=== PATIENT | female | born 1985 | race Caucasian/White ===

== ENCOUNTER 2016-12-26 15:55 | Inpatient (IN) | payer OTHER ==
[2016-12-26 16:34] LABS: Hematocrit 39 % (35-47); Hemoglobin 13.1 g/dl (12.0-16.0); Mean Corpuscular HGB Conc 34 g/dl (31-36); Mean Corpuscular Hemoglobin 33 pg (27-31); Mean Corpuscular Volume 96 fL (80-97); Mean Platelet Volume 8 um3 (7.4-10.4); Red Blood Count 4.01 10^6/ul (4.0-5.4); Red Cell Distribution Width 14 % (10.5-15); White Blood Count 7.1 10^3/ul (3.5-10.8)
[2016-12-26] MEDS ORDERED: fentaNYL* 50 MCG/ML 2 ML VIAL (100 MCG VIAL) ONE (17:02)
[2016-12-26] MEDS ORDERED: diPHENhydraMINE IV* 50 MG/ML 1 ml VIAL (BENADRYL) IV PRN (17:22)
[2016-12-26] MEDS ORDERED: Nalbuphine* 20 MG/ML 1 ML VIAL IV PRN ×2 (17:22)
[2016-12-26] MEDS ORDERED: Naloxone* 2 MG in NS 0.9% 250 ML* 250 ML IV PRN (17:22)
[2016-12-26] MEDS ORDERED: Naloxone* 0.4 MG/ML 1 ML VIAL IV PRN (17:22)
[2016-12-26] MEDS ORDERED: Ondansetron INJ* 2 MG/ML VIAL IV PRN (17:22)
[2016-12-26] MEDS ORDERED: DiMENhydriNATE IV* 50 MG/ML VIAL IV PUSH PRN (17:22)
[2016-12-26] MEDS ORDERED: Sodium Citrate/Citric Acid* 15 ML UDC PO PRN (17:26)
[2016-12-26] MEDS ORDERED: Famotidine TAB* 20 MG PO PRN (17:26)
[2016-12-26] MEDS ORDERED: Phenylephrine IV* 40 MCG/ML 10 ML SYRINGE IV PUSH PRN (17:26)
[2016-12-26] MEDS ORDERED: EPHEDrine (Pressors)* 50 MG/ML VIAL IV PUSH PRN (17:26)
[2016-12-26] MEDS ORDERED: Witch Hazel PAD* JAR TOPICAL PRN (20:00)
[2016-12-26] MEDS ORDERED: Oxytocin in LR* 20 UNITS/1,000 ML BAG IVPB SCH (20:00)
[2016-12-26] MEDS ORDERED: Acetaminophen TAB* 325 MG PO PRN (20:00)
[2016-12-26] MEDS ORDERED: Dibucaine 1% 28.35 GM TUBE ONE (20:01)
[2016-12-26] MEDS ORDERED: Lidocaine 1% MPF* 2 ML VIAL ONE (20:01)
[2016-12-26] MEDS ORDERED: OXYTOCIN* 10 UNITS/ML 1 ML VIAL ONE (20:02)
[2016-12-26] MEDS ORDERED: Misoprostol TAB* 200 MCG ONE (20:03)
[2016-12-27 07:12] LABS: Hematocrit 34 % (35-47); Hemoglobin 11.4 g/dl (12.0-16.0); Mean Corpuscular HGB Conc 34 g/dl (31-36); Mean Corpuscular Hemoglobin 32 pg (27-31); Mean Corpuscular Volume 96 fL (80-97); Mean Platelet Volume 8 um3 (7.4-10.4); Red Blood Count 3.54 10^6/ul (4.0-5.4); Red Cell Distribution Width 14 % (10.5-15); White Blood Count 11.1 10^3/ul (3.5-10.8)
[2016-12-27] MEDS: Docusate CAP* 100 MG PO SCH ×4 (08:56→20:24)
[2016-12-27] MEDS ORDERED: Ferrous Gluconate TAB* 324 MG TAB PO SCH (09:00)
[2016-12-27] MEDS: Ibuprofen TAB* 600 MG PO PRN ×2 (09:06→20:39)
--- NOTE | 2016-12-27 11:17 | PTEDU ---
Patient Name: STEVIE CARDENAS STEVIE CARDENAS selected video: BBOB: Bonding Through Massage to view on 12/27/2016 at 11:16:19 AM from [id number]
[2016-12-27] MEDS: Dibucaine 1% 28.35 GM TUBE PR PRN (15:54)
[2016-12-28] MEDS: Ibuprofen TAB* 600 MG PO PRN (07:33)
[2016-12-28] MEDS: Docusate CAP* 100 MG PO SCH (08:56)
[2016-12-28 10:06] VITALS: BP 94/53
[2016-12-28] MEDS: Dibucaine 1% 28.35 GM TUBE PR PRN (13:11)
== END 2016-12-28 13:11 | disposition home or self-care (01) | DRG 560 ==
LOC: MCHOBOUT 15:55 → MCHOB 16:18
PROVIDERS: ADMIT Nurse Practitioner; ATTEND Nurse Practitioner
PROC: 10E0XZZ Delivery of Products of Conception, External Approach (ICD-10-PCS; principal; 2016-12-26)
PROC: 0KQM0ZZ Repair Perineum Muscle, Open Approach (ICD-10-PCS; 2016-12-26)
PROC: 4A1HX4Z Monitoring of Products of Conception, Cardiac Electrical Activity, External Approach (ICD-10-PCS; 2016-12-26)
PROC: 00HU33Z Insertion of Infusion Device into Spinal Canal, Percutaneous Approach (ICD-10-PCS; 2016-12-26)
PROC: 10907ZC Drainage of Amniotic Fluid, Therapeutic from Products of Conception, Via Natural or Artificial Opening (ICD-10-PCS; 2016-12-26)
DX: O48.0 Post-term pregnancy (principal); O45.8X3 Other premature separation of placenta, third trimester; G43.909 Migraine, unspecified, not intractable, without status migrainosus; O70.1 Second degree perineal laceration during delivery; Z3A.40 40 weeks gestation of pregnancy; Z37.0 Single live birth; O77.0 Labor and delivery complicated by meconium in amniotic fluid; O26.893 Other specified pregnancy related conditions, third trimester
CPT/HCPCS: 36415; 85025; 86850; 86900; 86901; A9270-GY; J2590; J3010

== ENCOUNTER 2017-04-26 11:47 | Emergency (ER) | payer BC, OTHER ==
[2017-04-26 12:01] VITALS: BP 94/59
--- NOTE | 2017-04-26 13:03 | UC ---
Skin Complaint HPI - HPI Summary HPI Summary: Pt is 31 yo woman present with an 4 month old child. Pt woke this morning or patchy hives across body this morning. pt reports itching. worse with shower. no meds taken. no h.o similar. Pt denies any new products or foods. Pt denies throat or facial swelling. no difficulty with swallowing, eating. no new products, foods. Pt is breast feeding. Pt's medications reviewed this visit - History of Current Complaint Chief Complaint: UCRash Time Seen by Provider: 04/26/17 13:02 Stated Complaint: RASH Hx Obtained From: Patient Hx Last Menstrual Period: ?: No Onset/Duration: Sudden Onset, Lasting Hours Timing: Constant Onset Severity: Mild Current Severity: Mild Pain Intensity: 0 Pain Scale Used: 0-10 Numeric Location: Diffuse, Generalized Aggravating: Nothing Alleviating: Nothing Associated Signs & Symptoms: Positive: Rash - Allergy/Home Medications Allergies/Adverse Reactions: Allergies Allergy/AdvReac Type Severity Reaction Status Date / Time No Known Allergies Allergy Verified 04/26/17 12:01 Review of Systems Constitutional: Negative Skin: Rash Eyes: Negative ENT: Negative Respiratory: Negative Cardiovascular: Negative Gastrointestinal: Negative Genitourinary: Negative Motor: Negative Neurovascular: Negative Musculoskeletal: Negative Neurological: Negative Psychological: Negative All Other Systems Reviewed And Are Negative: Yes PMH/Surg Hx/FS Hx/Imm Hx Previously Healthy: Yes - Surgical History Surgical History: None - Family History Known Family History: Positive: None - Social History Occupation: Unemployed Lives: With Family Alcohol Use: None Substance Use Type: None Smoking Status (MU): Never Smoked Tobacco Have You Smoked in the Last Year: No - Immunization History Most Recent Influenza Vaccination: this season 2015 Most Recent Pneumonia Vaccination: unsure Physical Exam Triage Information Reviewed: Yes Appearance: Well-Appearing, No Pain Distress, Well-Nourished Vital Signs: Initial Vital Signs Temp 98.0 F 04/26/17 11:57 Pulse 79 04/26/17 11:57 Resp 16 04/26/17 11:57 BP 94/59 04/26/17 11:57 Pulse Ox 100 04/26/17 11:57 Vital Signs Reviewed: Yes Eye Exam: Normal Eyes: Positive: Conjunctiva Clear ENT Exam: Normal ENT: Positive: Normal ENT inspection, Pharynx normal, TMs normal Dental Exam: Normal Neck exam: Normal Neck: Positive: Supple, Nontender Respiratory Exam: Normal Respiratory: Positive: Chest non-tender, Lungs clear, Normal breath sounds, No respiratory distress Cardiovascular: Positive: RRR, No Murmur, Pulses Normal Abdominal Exam: Normal Abdomen Description: Positive: Nontender, No Organomegaly, Soft Bowel Sounds: Positive: Present Musculoskeletal Exam: Normal Musculoskeletal: Positive: Strength Intact Neurological Exam: Normal Neurological: Positive: Alert, Muscle Tone Normal Psychological Exam: Normal Skin: Positive: Other - pt with urticarial hives in patches on ext, chest, abd, back pruritic No lesions to face Course/Dx - Course Course Of Treatment: Pt presents with urticaria patchy rash on ext x 4, abd, chest, back. Unknown allergen. spoke with [facility] -okay to breast feed with benadryl, prednisone. recommend take meds just following feeding. may decrease mild production. d/w mom and dad. agreeable with plan. will supplement with formula prn. return precautions discussed - Diagnoses Provider Diagnoses: urticarial rash Discharge - Discharge Plan Condition: Stable Disposition: HOME Prescriptions: Famotidine TAB* [Pepcid 20 MG TAB*] 20 mg PO DAILY #10 tab predniSONE TAB* [Deltasone TAB*] 40 mg PO DAILY #5 tab Patient Education Materials: Urticaria (ED) Referrals: [facility]ERR[facility] [Outside] No Primary Care Phys,NOPCP [Primary Care Provider] - Additional Instructions: - Stay well hydrated. Drink plenty of non-alcoholic, non-caffinated beverages - Eat and drink regular, healthy meals - Avoid getting over heated - hot tub,hot shower, vigorous exercise for next 3- 4 days - Avoid Non steroidal anti-inflammatory medications such as Motrin, Ibuprofen, Advil, Naproxyn - Okay take take predisone, benadryl, and pepcid as prescribed - It is recommended you breast feed before taking these medications, although these medications are safe in breast feed infants. - These medications may decrease your production of breast milk - you may need to supplement with formula if your infant seems hungry after feeding - You have been given the phone number to the physician referral center - they may assist you in scheduling with a new primary. Return here or go to the emergency department with questions or concerns -
== END 2017-04-26 13:25 | disposition home or self-care (01) ==
LOC: UCEAST 11:47
DX: L50.9 Urticaria, unspecified (principal)
CPT/HCPCS: 99212; G0463

== ENCOUNTER 2017-05-01 17:30 | Emergency (ER) | payer BC, OTHER ==
[2017-05-01] MEDS ORDERED: Metoclopramide IV* 5 MG/ML 2 ML VIAL IV ONE (19:50)
[2017-05-01 20:17] LABS: Hematocrit 45 % (35-47); Hemoglobin 15.3 g/dl (12.0-16.0); Mean Corpuscular HGB Conc 34 g/dl (31-36); Mean Corpuscular Hemoglobin 31 pg (27-31); Mean Corpuscular Volume 92 fL (80-97); Mean Platelet Volume 8 um3 (7.4-10.4); Red Blood Count 4.94 10^6/ul (4.0-5.4); Red Cell Distribution Width 13 % (10.5-15); White Blood Count 4.4 10^3/ul (3.5-10.8)
[2017-05-01 20:18] LABS: Urine Bilirubin Negative (Negative); Urine Glucose Negative (Negative); Urine Nitrite Negative (Negative)
[2017-05-01 20:33] LABS: ALT 43 U/L (7-52); AST 47 U/L (13-39); Albumin 4.5 g/dL (3.2-5.2); Alkaline Phosphatase 53 U/L (34-104); Anion Gap 10 mmol/L (2-11); Blood Urea Nitrogen 13 mg/dL (6-24); C Reactive Protein 40.64 mg/L (< 5.00); CO2 Carbon Dioxide 24 mmol/L (22-32); Calcium 9.4 mg/dL (8.6-10.3); Chloride 102 mmol/L (101-111); Creatine Kinase 31 U/L (10-223); EGFR African American 135.8 (>60); EGFR Non-African American 105.6 (>60); Glucose 82 mg/dL (70-100); Lipase 13 U/L (11.0-82.0); Magnesium 2.1 mg/dL (1.9-2.7); Potassium 3.1 mmol/L (3.5-5.0); Sodium 136 mmol/L (133-145); Total Protein 7.5 g/dL (6.4-8.9)
[2017-05-01] MEDS ORDERED: NS 0.9% 1000 ML* 1,000 ML IV ONE (21:00)
--- NOTE | 2017-05-01 21:08 | ED ---
Abdominal Pain/Female - HPI Summary HPI Summary: Patient presents to ED with 3 days nausea and diarrhea. Denies fevers, sweats, chills, abdominal pain or back pain. She states she ate [employer] on Saturday night and the symptoms started that evening. She notes to nausea, but denies vomiting. She is breast feeding currently and denies any health problems and takes no medications. She has not tried to take anything for symptomatic relief. She feels she has been eating less, but drinking OK. notes to a 9lb weight loss. Denies SOB, chest pain, or urinary symptoms. Denies weakness. The diarrhea is yellow, watery and has a pungent smell. She states she has diarrhea every 5-10 minutes and is constant x 3 days. Denies abdominal pain, abdominal surgeries or belching. - History of Current Complaint Chief Complaint: EDNauseaVomitDiarrh Stated Complaint: V/N/D ABD PAIN Time Seen by Provider: 05/01/17 19:42 Hx Obtained From: Patient Hx Last Menstrual Period: ?: No Onset/Duration: Sudden Onset Timing: Constant Severity Initially: Moderate Severity Currently: Moderate Pain Intensity: 3 Pain Scale Used: 0-10 Numeric Radiates: No Aggravating Factor(s): Nothing Associated Signs and Symptoms: Positive: Diarrhea - Risk Factors Ectopic Risk Factor: Maternal Age ^ 30 Allergies/Adverse Reactions: Allergies Allergy/AdvReac Type Severity Reaction Status Date / Time No Known Allergies Allergy Verified 05/01/17 17:39 PMH/Surg Hx/FS Hx/Imm Hx Previously Healthy: Yes - Immunization History Hx Pertussis Vaccination: No Immunizations Up to Date: Unable to Obtain/Confirm Infectious Disease History: No Infectious Disease History: Denies: Traveled Outside the [place] in Last 30 Days - Family History Known Family History: Positive: None - Social History Occupation: Unemployed Lives: With Family Alcohol Use: None Hx Substance Use: No Substance Use Type: Reports: None Hx Tobacco Use: No Smoking Status (MU): Never Smoked Tobacco Have You Smoked in the Last Year: No Review of Systems Constitutional: Negative Eyes: Negative Cardiovascular: Negative Respiratory: Negative Positive: Diarrhea, Nausea Positive: no symptoms reported, see HPI Neurological: Negative Psychological: Normal All Other Systems Reviewed And Are Negative: Yes Physical Exam Triage Information Reviewed: Yes Vital Signs On Initial Exam: Initial Vitals Temp Pulse Resp BP Pulse Ox 98.6 F 90 16 101/71 97 05/01/17 17:39 05/01/17 17:39 05/01/17 17:39 05/01/17 17:39 05/01/17 17:39 Vital Signs Reviewed: Yes Appearance: Positive: Well-Appearing, Well-Nourished Skin: Positive: Warm, Skin Color Reflects Adequate Perfusion Head/Face: Positive: Normal Head/Face Inspection Eyes: Positive: EOMI, SHORTY, Conjunctiva Clear ENT: Positive: Pharynx normal Neck: Positive: Supple, No Lymphadenopathy Respiratory/Lung Sounds: Positive: Clear to Auscultation, Breath Sounds Present Cardiovascular: Positive: Normal, RRR, Pulses are Symmetrical in both Upper and Lower Extremities Abdomen Description: Positive: Nontender, No Organomegaly, Soft. Negative: CVA Tenderness (R), CVA Tenderness (L), Distended, Guarding, [place] Tenderness Bowel Sounds: Positive: Hyperactive Neurological: Positive: Normal, Sensory/Motor Intact, Speech Normal Psychiatric: Positive: Normal AVPU Assessment: Alert - [place] Coma Scale Coma Scale Total: 15 Diagnostics - Vital Signs Vital Signs Temp Pulse Resp BP Pulse Ox 05/01/17 20:00 98.8 F 77 18 102/72 96 05/01/17 19:58 102/73 05/01/17 17:39 98.6 F 90 16 101/71 97 - Laboratory Lab Results: Lab Results 05/01/17 05/01/17 05/01/17 Range/Units 20:05 20:05 20:05 WBC 4.4 (3.5-10.8) 10^3/ul RBC 4.94 (4.0-5.4) 10^6/ul Hgb 15.3 (12.0-16.0) g/dl Hct 45 (35-47) % MCV 92 (80-97) fL MCH 31 (27-31) pg MCHC 34 (31-36) g/dl RDW 13 (10.5-15) % Plt Count 169 (150-450) 10^3/ul MPV 8 (7.4-10.4) um3 Neut % (Auto) 66.2 (38-83) % Lymph % (Auto) 21.7 L (25-47) % [place] % (Auto) 11.5 H (1-9) % Eos % (Auto) 0.4 (0-6) % Baso % (Auto) 0.2 (0-2) % Absolute Neuts (auto) 2.9 (1.5-7.7) 10^3/ul Absolute Lymphs (auto) 0.9 L (1.0-4.8) 10^3/ul Absolute Monos (auto) 0.5 (0-0.8) 10^3/ul Absolute Eos (auto) 0 (0-0.6) 10^3/ul Absolute Basos (auto) 0 (0-0.2) 10^3/ul Absolute Nucleated RBC 0 10^3/ul Nucleated RBC % 0.1 Sodium 136 (133-145) mmol/L Potassium 3.1 L (3.5-5.0) mmol/L Chloride 102 (101-111) mmol/L Carbon Dioxide 24 (22-32) mmol/L Anion Gap 10 (2-11) mmol/L BUN 13 (6-24) mg/dL Creatinine 0.65 (0.51-0.95) mg/dL Est GFR ( Amer) 135.8 (>60) Est GFR (Non-Af Amer) 105.6 (>60) BUN/Creatinine Ratio 20.0 (8-20) Glucose 82 (70-100) mg/dL Lactic Acid 1.0 (0.5-2.0) mmol/L Calcium 9.4 (8.6-10.3) mg/dL Magnesium 2.1 (1.9-2.7) mg/dL Total Bilirubin 0.70 (0.2-1.0) mg/dL AST 47 H (13-39) U/L ALT 43 (7-52) U/L Alkaline Phosphatase 53 (34-104) U/L Total Creatine Kinase 31 (10-223) U/L C-Reactive Protein 40.64 H (< 5.00) mg/L Total Protein 7.5 (6.4-8.9) g/dL Albumin 4.5 (3.2-5.2) g/dL Globulin 3.0 (2-4) g/dL Albumin/Globulin Ratio 1.5 (1-3) Lipase 13 (11.0-82.0) U/L Beta HCG, Quant < 0.60 mIU/mL Urine Color Urine Appearance Urine pH (5-9) Ur Specific [place] (1.010-1.030) Urine Protein (Negative) Urine Ketones (Negative) Urine Blood (Negative) Urine Nitrate (Negative) Urine Bilirubin (Negative) Urine Urobilinogen (Negative) Ur Leukocyte Esterase (Negative) Urine Glucose (Negative) 05/01/17 Range/Units 20:05 WBC (3.5-10.8) 10^3/ul RBC (4.0-5.4) 10^6/ul Hgb (12.0-16.0) g/dl Hct (35-47) % MCV (80-97) fL MCH (27-31) pg MCHC (31-36) g/dl RDW (10.5-15) % Plt Count (150-450) 10^3/ul MPV (7.4-10.4) um3 Neut % (Auto) (38-83) % Lymph % (Auto) (25-47) % [place] % (Auto) (1-9) % Eos % (Auto) (0-6) % Baso % (Auto) (0-2) % Absolute Neuts (auto) (1.5-7.7) 10^3/ul Absolute Lymphs (auto) (1.0-4.8) 10^3/ul Absolute Monos (auto) (0-0.8) 10^3/ul Absolute Eos (auto) (0-0.6) 10^3/ul Absolute Basos (auto) (0-0.2) 10^3/ul Absolute Nucleated RBC 10^3/ul Nucleated RBC % Sodium (133-145) mmol/L Potassium (3.5-5.0) mmol/L Chloride (101-111) mmol/L Carbon Dioxide (22-32) mmol/L Anion Gap (2-11) mmol/L BUN (6-24) mg/dL Creatinine (0.51-0.95) mg/dL Est GFR ( Amer) (>60) Est GFR (Non-Af Amer) (>60) BUN/Creatinine Ratio (8-20) Glucose (70-100) mg/dL Lactic Acid (0.5-2.0) mmol/L Calcium (8.6-10.3) mg/dL Magnesium (1.9-2.7) mg/dL Total Bilirubin (0.2-1.0) mg/dL AST (13-39) U/L ALT (7-52) U/L Alkaline Phosphatase (34-104) U/L Total Creatine Kinase (10-223) U/L C-Reactive Protein (< 5.00) mg/L Total Protein (6.4-8.9) g/dL Albumin (3.2-5.2) g/dL Globulin (2-4) g/dL Albumin/Globulin Ratio (1-3) Lipase (11.0-82.0) U/L Beta HCG, Quant mIU/mL Urine Color Yellow Urine Appearance Clear Urine pH 5.0 (5-9) Ur Specific [place] 1.025 (1.010-1.030) Urine Protein Negative (Negative) Urine Ketones Trace H (Negative) Urine Blood Negative (Negative) Urine Nitrate Negative (Negative) Urine Bilirubin Negative (Negative) Urine Urobilinogen Negative (Negative) Ur Leukocyte Esterase Negative (Negative) Urine Glucose Negative (Negative) Result Diagrams: 05/01/17 20:05 05/01/17 20:05 Lab Statement: Any lab studies that have been ordered have been reviewed, and results considered in the medical decision making process. Abdominal Pain Fem Course/Dx - Course Course Of Treatment: During the course of treatment, the patient was given 1L IV fluids and 5mg reglan. She is currently and reglan is considered safe according to UTD. Stool occult blood, stool culture ordered. UA negative. HCG negative. Labs WNL except for CRP is 40.64. Patient is feeling better after zofran given. After stool results obtained and c-diff negative, patient is given 4mg loperamide. She is encouraged to take this only if severe diarrhea and feeling as though she is becoming dehydrated from it. She is currently breast feeding and [facility] and UTD show it will cross into the breast milk at certain doses. For this, she is encouraged to avoid if possible. However, d/t her significant symptoms this was deemed to be the appropriate medication and safer than pepto bismol. Instructions given to patient and she is OK with discharge. - Diagnoses Differential Diagnosis: Positive: Irritable Bowel Syndrome, Other - diarrhea Provider Diagnoses: Diarrhea Discharge - Discharge Plan Condition: Stable Disposition: HOME Prescriptions: Loperamide LIQ* [Imodium LIQ*] 2 mg PO SEE INSTRUCTIONS PRN #64 mg MDD 8 PRN Reason: Diarrhea Patient Education Materials: Acute Diarrhea (ED), Loperamide (By mouth) Referrals: No Primary Care Phys,NOPCP [Primary Care Provider] - Additional Instructions: Follow up with your PCP Take 2 mg after each loose stool of loperamide (immodium), not to exceed 16mg total for the day If you start to develop more formed stools, take 2mg only after every OTHER loose stool Once a fully formed stool is present, discontinue the medication Stay hydrated. Drink gatorade if you feel you are not drinking enough fluids Eat foods such as: bananas, plain rice, and toast with boiled potatoes, crackers, cooked carrots, and baked chicken without the skin or fat. Other recommended foods include cereals (rice, wheat, and oat cereals), and yogurt. If you develop any worsening symptoms, return to the ED You should start to feel better in a few days.
[2017-05-01] MEDS ORDERED: Loperamide LIQ* 2 MG/10 ML UDC PO ONE ×2 (22:00→22:01)
[2017-05-01 22:21] VITALS: BP 98/64
--- NOTE | 2017-05-04 15:40 | ED ---
Progress - Progress Note Progress Note: Spoke with pt - she is feeling better - stools are more formed and tolerating liquids very well - appetite is not 100% yet but no vomiting, fever, ab pain. She was unable to get immodium for unknown reasons? Her stool reveals findings of inflammation and blood. She denies brayan hematochezia and again, is improving. Suspect these findings are a result of acute GI inflammation from irritation. She agrees to f/u w/ PCP and if worse, will return to ED. Course/Dx - Course Course Of Treatment: During the course of treatment, the patient was given 1L IV fluids and 5mg reglan. She is currently and reglan is considered safe according to UTD. Stool occult blood, stool culture ordered. UA negative. HCG negative. Labs WNL except for CRP is 40.64. Patient is feeling better after zofran given. After stool results obtained and c-diff negative, patient is given 4mg loperamide. She is encouraged to take this only if severe diarrhea and feeling as though she is becoming dehydrated from it. She is currently breast feeding and CDC and UTD show it will cross into the breast milk at certain doses. For this, she is encouraged to avoid if possible. However, d/t her significant symptoms this was deemed to be the appropriate medication and safer than pepto bismol. Instructions given to patient and she is OK with discharge. - Diagnoses Provider Diagnoses: Diarrhea
== END 2017-05-01 22:39 | disposition home or self-care (01) ==
LOC: ED 17:30
DX: R19.7 Diarrhea, unspecified (principal)
CPT/HCPCS: 36415; 80053; 81003; 82272; 82550; 83605; 83630; 83690; 83735; 84702; 85025; 86140; 87045; 87046; 87077; 87493; 87899; 99283; A9270-GY; J2765